=== PATIENT | female | born 1940 | race Asian ===

== ENCOUNTER 2020-03-25 15:24 | Inpatient (IN) | payer OTHER, MEDICAID, SELFPAY ==
[~2020-03-25] VITALS: Ht 154.9 cm; Wt 52.2 kg
[2020-03-25] MEDS ORDERED: NACL 0.9% 1,000 ML IV ONE (15:28)
--- NOTE | 2020-03-25 15:30 | NUR ---
PATIENT TO ER #8 WITH ISOLATION, NEGATIVE PRESSURE, LOOM FIXER HELPER, SAO2, ABP; IV START #20 RIGHT FOREARM
--- NOTE | 2020-03-25 15:45 | NUR ---
PATIENT PRESENTS TO THE ER WITH HX OF COUGH/FEVER FOR TWO DAYS; SEEN AT [facility] FOR SAME ON 03/23/20; TREATED AND RELEASED; PATIENT TO ER FOR REEVALUATION OF WORSENING OF CONDITION AND COVID-19 TESTING
[2020-03-25 15:59] VITALS: BP_SYST 114
[2020-03-25 16:10] LABS: BASOPHILS # (AUTO) 0.1 K/uL (0.0-0.2); EOSINOPHILS # (AUTO) 0.2 K/uL (0.0-0.4); EOSINOPHILS % (AUTO) 2.6 % (0.0-4.0); HEMATOCRIT 40.3 % (36-48); HEMOGLOBIN 13.3 g/dL (12.0-16.0); LYMPHOCYTES # (AUTO) 1.6 K/uL (1.0-5.5); LYMPHOCYTES % (AUTO) 25.7 % (20.5-51.5); MEAN CORPUSCULAR HEMOGLOBIN 31 pg (27-31); MEAN CORPUSCULAR HGB CONC 33 % (32-36); MEAN CORPUSCULAR VOLUME 94 fL (79.0-98.0); MONOCYTES # (AUTO) 0.5 K/uL (0.0-1.0); NEUTROPHILS # (AUTO) 3.8 K/uL (1.8-7.7); NEUTROPHILS % (AUTO) 62.7 % (40.0-70.0); PLATELET COUNT (AUTO) 149 K/uL (130-430); RED CELL DISTRIBUTION WIDTH 12.9 % (9.0-15.0); WHITE BLOOD COUNT (AUTO) 6.1 K/uL (4.8-10.8)
[2020-03-25] MEDS ORDERED: cefTRIAXone 1 GM IVPB PREMIX 50 ML IV ONE (16:15)
[2020-03-25] MEDS ORDERED: DOXYCYCLINE HYCLATE 100 MG in D5W 100 ML IV ONE (16:15)
[2020-03-25] MEDS ORDERED: AZITHROMYCIN 250 MG in NS 250 ML IV ONE (16:15)
--- NOTE | 2020-03-25 16:20 | NUR ---
ORDERS RECEIVED FROM DR. HERMAN FOR ADMISSION TO ICU. ORDERS ENETERED BY RN. CALLED FOR BED ASSIGNMENT, WAITING FOR EETURNED CALL FROM CHARGE NURSE.
[2020-03-25] MEDS ORDERED: QUER1POW PO (16:23)
[2020-03-25] MEDS ORDERED: AZIT500T3 PO (16:23)
[2020-03-25] MEDS ORDERED: PRO40 PO (16:23)
[2020-03-25] MEDS ORDERED: NITSL PO (16:23)
[2020-03-25] MEDS ORDERED: MULT-300 PO (16:24)
[2020-03-25] MEDS ORDERED: DULO30CA52 PO (16:24)
[2020-03-25] MEDS ORDERED: ANTACID PO (16:24)
[2020-03-25] MEDS ORDERED: APIX2.5T PO (16:24)
[2020-03-25] MEDS ORDERED: DOCU250C71 PO (16:24)
[2020-03-25] MEDS ORDERED: MEMA5TAB PO (16:24)
[2020-03-25] MEDS ORDERED: LIP20 PO (16:24)
[2020-03-25] MEDS ORDERED: MOM PO (16:24)
[2020-03-25] MEDS ORDERED: DONE10TA44 PO (16:24)
[2020-03-25] MEDS ORDERED: FOLI-43 PO (16:24)
[2020-03-25] MEDS ORDERED: ACET-2165 PO (16:24)
[2020-03-25] MEDS ORDERED: ZINC220T4 PO (16:24)
[2020-03-25] MEDS ORDERED: AZITHROMYCIN 500 MG/VIAL (ZITHROMAX) IV ONE (16:40)
[2020-03-25 16:52] LABS: BILIRUBIN,URINE NEGATIVE (NEGATIVE); BLOOD, URINE NEGATIVE (NEGATIVE); COLOR,URINE YELLOW (YELLOW); GLUCOSE,URINE NEGATIVE (NEGATIVE); KETONES,URINE NEGATIVE (NEGATIVE); LEUKOCYTE ESTERASE ,URINE NEGATIVE (NEGATIVE); NITRITE, URINE POSITIVE (NEGATIVE); PROTEIN URINE NEGATIVE (NEGATIVE); UROBILINOGEN,URINE 0.2 (0.2-1.0)
[2020-03-25 17:03] LABS: PROTHROMBIN TIME 10.4 SECS (9.5-12.5)
[2020-03-25 17:04] LABS: ANION GAP 5 (5-15); CHLORIDE 104 mmol/L (98-107); CREATININE 0.82 mg/dL (0.55-1.30); GLUCOSE 97 mg/dL (70-99); POTASSIUM 3.8 mmol/L (3.5-5.1); SODIUM SERUM 137 mmol/L (136-145); UREA NITROGEN, BLOOD 14 mg/dL (8-21)
[2020-03-25 17:08] LABS: CLARITY/URINE HAZY (CLEAR)
[2020-03-25 17:08] LABS: ALANINE AMINOTRANSFERASE 24 U/L (12-78); AMYLASE 47 U/L (0-100); ASPARTATE AMINOTRANSFERASE 23 U/L (10-37); LIPASE 167 U/L (73-393); TOTAL BILIRUBIN 0.7 mg/dL (0.0-1.0)
[2020-03-25 17:10] LABS: BACTERIA,URINE MODERATE /HPF (None Seen); MUCUS,URINE None Seen /LPF (None Seen); RBC,URINE NONE SEEN /HPF (0-3); WBC,URINE 0-3 /HPF (0-3)
--- NOTE | 2020-03-25 18:00 | NUR ---
PT RESTING QUIETLY IN NO DISTRESS, AWAITING ICU BED ASSIGNMENT. V/S STABLE.
--- NOTE | 2020-03-25 19:32 | NUR ---
DR CHOU AT BEDSIDE FOR CONSULTATION
[2020-03-25] MEDS ORDERED: ALBUTEROL MDI INHALATION 8 GM INH INH PRN (21:00)
--- NOTE | 2020-03-25 21:00 | NUR ---
PT AWAITING ICU BED ASSIGNMENT. PT V/S STABLE IN NO APPARENT DISTRESS.
--- NOTE | 2020-03-25 22:45 | NUR ---
PT SLEEPING IN NO APPARENT DISTRESS. V/S STABLE.
[2020-03-26] VITALS (15 sets, daily range): BP systolic 95–162
[2020-03-26] MEDS: APIXABAN 2.5 MG TABLET PO SCH ×3 (00:58→21:05)
--- NOTE | 2020-03-26 01:00 | NUR ---
PT EATING REGULAR DIET, TOLERATING PO WELL. PT IN NO DISTRESS. V/S STABLE.
--- NOTE | 2020-03-26 01:50 | NUR ---
REPORT TO ELVIA MARCOS TO ASSUME CARE OF PT. PT STABLE.
--- NOTE | 2020-03-26 01:53 | NUR ---
recieved report on pt. pt is alert and able to communicate needs. No acute distress noted. VSS. Remains in negative airflow room, isolation for PUI.
--- NOTE | 2020-03-26 05:59 | NUR ---
DR. Hollingsworth at bedside. Pt responding to verbal stimuli. No acute distress. o2 sats are at 93%. Pt pulling off oxygen but continues to be stable.
[2020-03-26] MEDS ORDERED: NITROGLYCERIN 0.4 MG TAB.SUBL SL SCH (06:15)
[2020-03-26] MEDS: cefTRIAXone 1 GM in D5W 50 ML IV SCH (06:47)
[2020-03-26] MEDS ORDERED: cefTRIAXone 1 GM IVPB PREMIX 50 ML IV ONE (06:52)
--- NOTE | 2020-03-26 07:36 | NUR ---
TRANSFERRED TO ICU ROOM 7. PT IN STABLE CONDITION. VSS. PUI PT.
--- NOTE | 2020-03-26 07:40 | NUR ---
Patient arrived at 0736 from ER via gurney. Received report and endorsed from ER nurse. Patient on 2 liters via nasal cannula. VS stable. Placed on , saturation, and blood pressure monitor. Patient placed in bed with side rails x 3 up. Call light with in reach. In no acute distress. Breathing even and unlabored.
--- NOTE | 2020-03-26 08:05 | NUR ---
Md Hermosillo at bedside.
[2020-03-26] MEDS ORDERED: APIXABAN 2.5 MG TABLET PO SCH (09:00)
[2020-03-26] MEDS: DOCUSATE SODIUM 250 MG CAPSULE PO SCH (09:49)
[2020-03-26] MEDS: MULTIVITS,CA,MINERALS/IRON/FA 1 TABLET PO SCH (09:50)
[2020-03-26] MEDS: MEMANTINE HCL 5 MG TABLET PO SCH ×2 (09:50→21:05)
[2020-03-26] MEDS: PANTOPRAZOLE SODIUM 40 MG TAB PO SCH (09:50)
[2020-03-26] MEDS: DULoxetine HCL 30 MG CAPSULE.DR (CYMBALTA) PO SCH (09:51)
[2020-03-26] MEDS: FOLIC ACID 1 MG TABLET PO SCH (09:51)
--- NOTE | 2020-03-26 10:51 | NUR ---
SS NOTES/DCP: MASTIC SPRAYER phoned spouse, Stephen Triana (p: [phone]) who is Mandarin speaking only and asked to phone Angela Hernandez (dtr, STEVEN, ANA) @ [phone] instead. Per dtr, pt is a resident at [facility] for about 1 year now. Pt is semi-dependent on her ADL's. Pt utilizes a wheelchair to ambulate and pt is able to bathe self and feed self "sometimes". Per dtr, pt had a stroke in 2014 and suffered from depression and dementia afterwards. Per dtr, pt's source of income is her chcf and [facility] takes care of her finances. When discharged, pt is go back to [facility].
--- NOTE | 2020-03-26 14:36 | NUR ---
O2 pt 92% sat on RA. Attempted to place NC @2L on patient who keeps taking it off. Ox goes up to 95 when she keeps the cannula on.
--- NOTE | 2020-03-26 17:20 | NUR ---
Informed MD Darrick Hermosillo's request to transfer patient to floor. New order to transfer patient to telemetry. MST charge nurse notified.
--- NOTE | 2020-03-26 18:30 | NUR ---
Patient received report from Cate GAN. Patient is alert to self, awake, speaks Mandarin only, vital signs taken, patient is on room air, IV line is patent, no s/s of infiltration, continuing to monitor patient, bed in lowest position, three side rails up, bed alarm on, call light placed within reach, fall, aspiration and isolation precautions in place.
--- NOTE | 2020-03-26 18:40 | NUR ---
Transferred patient to [facility] B by bed with portable tele monitor. Endorsed patient and gave report to nurse Rc. Patient in bed with awake and alert with side rails x 3 up. Patient in no acute distress on room air. Call light with in reach. Set patient up on tele and 02 monitor required by tele unit.
--- NOTE | 2020-03-26 19:30 | NUR ---
OPENING NOTES RECEIVED SBAR REPORT FROM DAY SHIFT RN. PT RESTING IN BED, CONFUSED. BREATHING EASY AND UNLABORED TO ROOM AIR. VSS. O2 AT 93%. NO SIGNS AND SYMPTOMS PAIN. BED ALARM ON, LOCKED IN LOWEST LEVEL. SIDE RAILS X3. CALL LIGHT WITHIN REACH. SAFETY, ASPIRATION, AND COVID ISOLATION PRECAUTIONS MAINTAINED. WILL CONTINUE TO MONITOR.
[2020-03-26] MEDS: ATORVASTATIN 20 MG TABLET PO SCH (21:05)
[2020-03-26] MEDS: DONEPEZIL HCL 5 MG TABLET (ARICEPT) PO SCH (21:05)
[2020-03-26] MEDS: MILK OF MAGNESIA 30 ML UDC PO SCH (21:05)
--- NOTE | 2020-03-26 21:05 | NUR ---
MEDICATION PASS SCHEDULED MEDICATIONS ADMINISTERED. PT WAS COOPERATIVE AND TOOK ALL THE MEDICATIONS. PT SWALLOWED MEDICATIONS PILLS WITHOUT DIFFICULTY. NO S/S OF ACUTE DISTRESS NOTED AT THIS TIME. BREATHING EVEN AND UNLABORED TO ROOM AIR. CALL LIGHT WITHIN REACH. HEAD OF BED ELEVATED FOR ASPIRATION PRECAUTIONS. SAFETY AND COVID ISOLATION PRECAUTIONS IN PLACE. WILL CONTINUE TO MONITOR.
--- NOTE | 2020-03-26 23:15 | NUR ---
RN ROUNDS PT RESTING IN BED. ABLE TO SEE RISE AND FALL RESPIRATIONS. BREATHING EASY. NO S/S OF PAIN. BED LOCKED IN LOWEST LEVEL. SIDE RAILS X3. CALL LIGHT WITHIN REACH. SAFETY, ASPIRATIONS, AND COVID ISOLATION PRECAUTIONS IN PLACE. WILL MONITOR.
[2020-03-27] VITALS: BP_SYST 148
--- NOTE | 2020-03-27 01:20 | NUR ---
RESTING PT RESTING IN BED WITH EYES CLOSED. BREATHING EVEN AND UNLABORED TO ROOM AIR. NO S/S OF PAIN. BED LOCKED IN LOWEST LEVEL. SIDE RAILS X3. CALL LIGHT WITHIN REACH. SAFETY, ASPIRATIONS, AND COVID ISOLATION PRECAUTIONS IN PLACE. WILL MONITOR.
[2020-03-27] MEDS: ACETAMINOPHEN 325 MG TABLET PO SCH ×7 (05:20→18:15)
[2020-03-27] MEDS: MAG-AL HYDROX/SIMETH 30 ML UDC PO SCH ×6 (05:20→18:15)
[2020-03-27] MEDS: cefTRIAXone 1 GM in D5W 50 ML IV SCH (06:15)
--- NOTE | 2020-03-27 06:57 | NUR ---
Nutrition Update Floyd Scale 13 noted. Pt admitted for Pneumonia Diet: Regular BMI: 21.7 kg/m2 RD to follow per nutrition care standards.
--- NOTE | 2020-03-27 07:40 | NUR ---
CLOSING NOTES PT RESTING IN BED, CONFUSED. BREATHING EASY AND UNLABORED TO ROOM AIR. VSS. O2 AT 93%. NO SIGNS AND SYMPTOMS PAIN. BED ALARM ON, LOCKED IN LOWEST LEVEL. SIDE RAILS X3. CALL LIGHT WITHIN REACH. SAFETY, ASPIRATION, AND COVID ISOLATION PRECAUTIONS MAINTAINED. WILL CONTINUE TO MONITOR UNTIL ENDORSE TO DAY SHIFT RN.
[2020-03-27] MEDS: DOCUSATE SODIUM 250 MG CAPSULE PO SCH (07:51)
[2020-03-27 08:00] VITALS: BP_SYST 125
[2020-03-27] MEDS: PANTOPRAZOLE SODIUM 40 MG TAB PO SCH (08:00)
[2020-03-27] MEDS: MULTIVITS,CA,MINERALS/IRON/FA 1 TABLET PO SCH (08:00)
[2020-03-27] MEDS: MEMANTINE HCL 5 MG TABLET PO SCH ×2 (08:00→21:20)
--- NOTE | 2020-03-27 08:00 | NUR ---
Note Pt assisted in sitting up in bed to eat her breakfast with HOB at 90'. No SOB/resp distress or pain/discomfort noted at this time. IV in right forearm intact and patent. Pt was fed her breakfast. Tele unit attached and intact at this time. No needs noted at this time. Call light within reach.
[2020-03-27] MEDS: FOLIC ACID 1 MG TABLET PO SCH (08:01)
[2020-03-27] MEDS: DULoxetine HCL 30 MG CAPSULE.DR (CYMBALTA) PO SCH (08:01)
[2020-03-27] MEDS: APIXABAN 2.5 MG TABLET PO SCH ×2 (08:02→21:20)
--- NOTE | 2020-03-27 11:05 | NUR ---
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
--- NOTE | 2020-03-27 11:30 | NUR ---
Note Pt resting in bed with television on. No needs noted at this time. Hygiene care was given and chux was changed for urine incontinence. Call light within reach.
[2020-03-27 11:48] VITALS: BP_SYST 130
[2020-03-27] MEDS ORDERED: NITROGLYCERIN 0.4 MG TAB.SUBL SL PRN (12:50)
--- NOTE | 2020-03-27 15:40 | NUR ---
Note Pt resting in bed. No needs noted at this time. Pt's daughter called for an update on pt's status at 1500. Call light within reach.
[2020-03-27 16:00] VITALS: BP_SYST 120
--- NOTE | 2020-03-27 18:35 | NUR ---
Note Pt was assisted in eating her dinner. Pt denies any SOB/resp distress or pain/discomfort all shift. IV in right forearm intact and patent at this time. Pt was checked on q1' and PRN all shift for needs and care. Tele unit attached and intact all shift. Pt was maintained with safety and isolation precautions all shift. Call light within reach.
--- NOTE | 2020-03-27 19:30 | NUR ---
OPENING NOTES RECEIVED SBAR REPORT FROM DAY SHIFT RN. PT RESTING IN BED WITH HEAD OF BED ELEVATED, A&O X1-2. NO SIGNS AND SYMPTOMS OF DISTRESS NOTED AT THIS TIME. BREATHING UNLABORED TO ROOM AIR. O2 SAT 93%. RIGHT FOREARM IV INTACT, SL. CALL LIGHT WITHIN REACH. BED ALARM ON, LOCKED IN LOWEST LEVEL. SAFETY, ASPIRATION, AND COVID ISOLATION PRECAUTIONS MAINTAINED. WILL CONTINUE TO MONITOR.
[2020-03-27 20:00] VITALS: BP_SYST 103
[2020-03-27] MEDS: DONEPEZIL HCL 5 MG TABLET (ARICEPT) PO SCH (21:20)
[2020-03-27] MEDS: MILK OF MAGNESIA 30 ML UDC PO SCH (21:20)
[2020-03-27] MEDS: ATORVASTATIN 20 MG TABLET PO SCH (21:20)
--- NOTE | 2020-03-27 21:20 | NUR ---
MEDICATION PASS SCHEDULED MEDICATIONS ADMINISTERED ORDERED. DISCUSSED MEDICATIONS ACTION AND POTENTIAL SIDE EFFECTS, BUT PT CONFUSED AND MANDRIN SPEAKING ONLY. PT RESTING IN BED. BREATHING IS EASY AND UNLABORED TO ROOM AIR. CALL LIGHT WITHIN REACH. SAFETY AND ISOLATION PRECAUTIONS IN PLACE. WILL CONTINUE TO MONITOR.
--- NOTE | 2020-03-27 23:50 | NUR ---
MEDICATION PASS/MIDNIGHT VITAL SIGNS VITAL SIGNS STABLE. O2 SAT 92%. SCHEDULED MEDICATIONS ADMINISTERED ORDERED. PT TOLERATING WELL, SWALLOWED MEDICATION PILLS WITH WATER. BED ALARM ON, LOCKED IN LOWEST LEVEL. SIDE RAILS X3. CALL LIGHT WITHIN REACH. SAFETY, ASPIRATION, AND ISOLATION PRECAUTIONS MAINTAINED. WILL MONITOR.
[2020-03-28] VITALS: BP_SYST 123
[2020-03-28] MEDS: ACETAMINOPHEN 325 MG TABLET PO SCH ×3 (00:20→12:08)
[2020-03-28] MEDS: MAG-AL HYDROX/SIMETH 30 ML UDC PO SCH ×3 (00:20→12:08)
--- NOTE | 2020-03-28 01:58 | NUR ---
RN ROUNDS PT RESTING IN BED. FIXED THE LEAD AND TELE MONITOR. NO S/S OF DISTRESS NOTED AT THIS TIME. BREATHING EVEN AND UNLABORED TO ROOM AIR. CALL LIGHT WITHIN REACH. SIDE RAILS X3. SAFETY, ASPIRATION, AND ISOLATION PRECAUTIONS MAINTAINED. WILL CONTINUE TO MONITOR.
--- NOTE | 2020-03-28 04:02 | NUR ---
RESTING PT RESTING IN BED. RNO S/S OF DISTRESS NOTED AT THIS TIME. BREATHING EVEN AND UNLABORED TO ROOM AIR. CALL LIGHT WITHIN REACH. SIDE RAILS X3. SAFETY, ASPIRATION, AND ISOLATION PRECAUTIONS MAINTAINED. WILL CONTINUE TO MONITOR.
[2020-03-28] MEDS: cefTRIAXone 1 GM in D5W 50 ML IV SCH (05:20)
--- NOTE | 2020-03-28 05:30 | NUR ---
NOTIFIED DR. HERMAN REGARDING COVID RESULT NOTIFIED DR. HERMAN REGARDING PT FIRST COVID NEGATIVE RESULT. DR. HERMAN STATED THAT IF THEY FIND PLACEMENT FOR PATIENT, THEN THEY ARE GOING TO DO SECOND COVID TEST.
--- NOTE | 2020-03-28 06:58 | NUR ---
CLOSING NOTES PT RESTING IN BED WITH HEAD OF BED ELEVATED, A&O X1-2. NO SIGNS AND SYMPTOMS OF DISTRESS NOTED AT THIS TIME. BREATHING UNLABORED TO ROOM AIR. RIGHT FOREARM IV INTACT, SL. CALL LIGHT WITHIN REACH. BED ALARM ON, LOCKED IN LOWEST LEVEL. SAFETY, ASPIRATION, AND COVID ISOLATION PRECAUTIONS MAINTAINED. WILL CONTINUE TO MONITOR UNTIL ENDORSE TO DAY SHIFT RN.
[2020-03-28 08:00] VITALS: BP_SYST 120
--- NOTE | 2020-03-28 08:00 | NUR ---
Note Pt assisted to sitting position with HOB at 90' to eat breakfast. No SOB/resp distress or pain/discomfort was noted at this time. Tele unit attached and intact. Pt does tug at tele leads from time to time, has to be reminded not to touch the leads. IV in right forearm intact and patent at this time. Continuos pulse ox on. No needs noted at this time. Call light within reach.
[2020-03-28] MEDS: DOCUSATE SODIUM 250 MG CAPSULE PO SCH (08:49)
[2020-03-28] MEDS: MEMANTINE HCL 5 MG TABLET PO SCH (08:51)
[2020-03-28] MEDS: MULTIVITS,CA,MINERALS/IRON/FA 1 TABLET PO SCH (08:51)
[2020-03-28] MEDS: DULoxetine HCL 30 MG CAPSULE.DR (CYMBALTA) PO SCH (08:51)
[2020-03-28] MEDS: FOLIC ACID 1 MG TABLET PO SCH (08:51)
[2020-03-28] MEDS: PANTOPRAZOLE SODIUM 40 MG TAB PO SCH (08:51)
[2020-03-28] MEDS: APIXABAN 2.5 MG TABLET PO SCH (08:52)
--- NOTE | 2020-03-28 09:00 | NUR ---
Note Pt's daughter called for update on her mother's status.
--- NOTE | 2020-03-28 10:29 | NUR ---
Case mgt: Rec'd orders for dc planning to snf--rufina Arthur, is faxing snf packet to [facility]--pt is Lara mosquera--SMITHA GAN Addendum: 03/28/20 at 1043 by Marialuisa Ba RN Pt is MRSA positive alejandro
--- NOTE | 2020-03-28 10:30 | NUR ---
Note Pt was fed her breakfast. Tolerated diet well. No needs noted at this time. Call light within reach. Dr Gifford ([facility]) was at pt's bedside assessing pt at 09am.
--- NOTE | 2020-03-28 10:53 | NUR ---
Discharge Planning: DCP faxed pt referral to [facility] ([phone] p [phone]) DCP to follow up Addendum: 03/28/20 at 1150 by Sandhya Tobin DP DCP spoke to Rere at [facility] ([phone] p [phone]) DON will review. DCP to follow up, DCP made CM aware. Addendum: 03/28/20 at 1235 by Sandhya Tobin DP DCP received room from Rere at [facility] ([phone] p [phone]) RM 112A, transportation arrnge with [facility] ([phone]) Will Call. Charge nurse and CM made aware, patient packet taken to nurse station.
[2020-03-28 12:00] VITALS: BP_SYST 118
--- NOTE | 2020-03-28 12:52 | NUR ---
PAGED [facility] AT [phone] SPOKE WITH AMANDA.
[2020-03-28 14:13] VITALS: BP_SYST 119
--- NOTE | 2020-03-28 15:20 | NUR ---
Note Report given to Cate GAN at [facility] at 1403. Pt's daughter Angela Hernandez was also called at 1405 and notified of transfer back to [facility] facility today at 1600. [facility] was called (was on-call) for pickup. Will pickup pt at 1600.
--- NOTE | 2020-03-28 15:55 | NUR ---
Note EMT from [facility] ambulance on the floor. Report given to EMT and discharge packet to give to [facility] for continuation of care. Pt's right forearm IV still there as Kelly RN from [facility] requested IV be left in for continuation of Rocephin IVPB daily. Pt stable - No SOB/resp distress or pain/discomfort was noted all shift. Pt was checked on q1' and PRN all shift for needs and care. Pt's tele unit was dc'd and returned to monitor worker. Pt off the floor via gurney to [facility].
== END 2020-03-28 15:55 | DRG 189 ==
LOC: SED 15:24 → EEVIPCON 16:13 → SIC 16:13 → STU 03-26 18:40
PROVIDERS: ADMIT Internal Medicine Infectious Disease; ATTEND Internal Medicine Infectious Disease
DX: J96.01 Acute respiratory failure with hypoxia (principal); J98.11 Atelectasis; J44.9 Chronic obstructive pulmonary disease, unspecified; E78.5 Hyperlipidemia, unspecified; F03.90 Unspecified dementia, unspecified severity, without behavioral disturbance, psychotic disturbance, mood disturbance, and anxiety; Z20.828 Contact with and (suspected) exposure to other viral communicable diseases; I10 Essential (primary) hypertension; Z78.9 Other specified health status; Z87.01 Personal history of pneumonia (recurrent); Z91.19 Patient's noncompliance with other medical treatment and regimen
CPT/HCPCS: 36415; 36600; 71045; 80053; 81000-TC; 82150-TC; 82550-TC; 82803-TC; 82962; 83605; 83690-TC; 83880; 84484; 85025; 85610-TC; 85730-TC; 86710; 87040-TC; 87081; 93005; 96365; 96367; 96368; 99291; G0378; J0456; J0696; J3490; J7050; J7060; U0003-CS